=== PATIENT | female | born 2005 | race Caucasian/White ===

== ENCOUNTER 2025-06-16 14:00 | Emergency (ER) | payer OTHER, SELFPAY ==
--- NOTE | ~2025-06-16 | XR_ITS ---
EXAMINATION: XR knee LT min 4V, 06/16/2025 14:45 OUTPATIENT CASE MANAGER HISTORY: Fall w/ Injury COMPARISON: No comparisons available. Findings: No acute fracture or malalignment. No significant degenerative changes. Soft tissues unremarkable. Impression: No acute fracture or malalignment. Reviewed, dictated and finalized at location P. ATIENT CASE MANAGER Impression: No acute fracture or malalignment.
[2025-06-16 14:05] VITALS: BP 154/96; PULSE 102; RESP 18; TEMP 36.4; O2SAT 100
--- OUTSIDE RECORDS SUMMARY | 2025-06-16 16:24 | XMS_ITS | Clinical Summary ---
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 Care Provider Unavailabl e Immunizations Immunization Administration Dates Next Due Flucelvax Trivalent Prefilled Syringe (18+MOS) 1 Pfizer Cominarty Covid-19 Prefilled Syringe (12+ yrs) 04/19/2025 Social History Tobacco Use Types Packs/Day Years Used Date Smoking Tobacco: Never Assessed Comments Unknown Sex and Gender Information Value Date Recorded Sex Assigned at Not on file Legal Sex Female 11:25 AM EDT Gender Identity Not on file Sexual Orientation Not on file Plan of Treatment Health Maintenance Due Date Last Done Comments Depression: Screening Annual ly using PHQ-2/9 in Adults 18 yrs or above (or HM Modifier)([facility]) 2021 Hepatitis C Virus Infection in Adolescents and Adults: Screening (or Modifier) ([facility]) 2021 SDOH Screening Reminder: Yaritza borges for all adults ([facility]) 2021 Tobacco Smoking Cessation: i n Adults excluding Women: Behavioral and Pharmacotherapy Interventions ([facility]) 2021 DTaP/Tdap/Td Vaccines ([facility]) (1 - Tdap) 2022 Cervical Cancer Screenin 1-65 yrs of age (or Modifier) 2024 Cervical Cancer Screening: P ap every 3 yrs pts age 21-65 2024 Cervical Cancer: Pap Screeni ng with Modifier timing ([facility]) 2024 Cervical Cancer: hrHPV alone or with cotesting Pap for Pts 30-65yrs screening every 5yrs ([facility]) 2024 Zoster/Shingles Vaccine Seri es Screening: Adults aged 18+ yrs (or HM Modifiers)([facility]) (1 of 2) 2053 COVID-19 Vaccine Screening: Initial Series and Booster Status ([facility]) Completed 04/19/2025 Flu Vaccination: Yearly for ages 18mos through 64 years (or Modifier)([facility]) Completed 04/19/2025 Pneumococcal Vaccination Scr eening: Pts 0-19 & 19-49 yrs of age ([facility]) Aged Out No longer eligible b ased on patient's age to complete this topic Medical Devices Not on file Insurance [address] [employer] Care Teams Lockmaker Relationship Specialty Start Date End Date No, Pcp, 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
--- OUTSIDE RECORDS SUMMARY | 2025-06-16 16:24 | XMS_ITS | Clinical Summary ---
Author Organization [facility] Address [address] [place] [id number] Care Team Providers Care Miter Sawyer Name Role Phone Unavailable Primary Care Provider Unavailabl e Social History Tobacco Use Types Packs/Day Years Used Date Smoking Tobacco: Never Assessed Comments Unknown Sex and Gender Information Value Date Recorded Sex Assigned at Not on file Legal Sex Female 7:29 PM CDT Gender Identity Not on file Sexual Orientation Not on file Plan of Treatment Health Maintenance Due Date Last Done Comments Cervical Cancer Screening Pa p Smear (Age 21 to 29) Every 3 Years 2003 Cervical Cancer Screening 2003 Annual Physical 2006 HPV Vaccines (1 - 3-dose series) 2018 Meningococcal B Vaccine (1 o f 2 - Standard) 2019 Hepatitis C 2021 DTaP, Tdap and Td Vaccines ( 1 - Tdap) 2022 Hepatitis B Vaccines (1 of 3 - 19+ 3-dose series) 2022 COVID-19 Vaccine (1 - 2024-2 6 season) 2025 Influenza Adult (#1) 2025 Hepatitis A Vaccines Aged Out No long er eligible based on patient's age to complete this topic Meningococcal Vaccine Aged Out No iesha nina eligible based on patient's age to complete this topic Pneumococcal Vaccine: Pediat rics (0 to 5 Years) and At-Risk Patients (6 to 49 Years) Aged Out No longer eligible b ased on patient's age to complete this topic RSV Immunizations Under 20 Months Aged Out No longer eligible based on patient's age to complete this topic
--- NOTE | 2025-06-16 16:41 | ED.GENADULT ---
HPI - General Adult General Chief complaint: Extremity Injury, Lower Stated complaint: L knee pain Time Seen by Provider: 06/16/25 16:12 History of Present Illness HPI narrative: 20-year-old female presented emergency department for evaluation for persistent left knee pain. Patient reports about 2 weeks ago she injured her knee and had outpatient imaging showing no acute abnormalities and she was told she has any strain. Patient describes left anterior inferior patellar tenderness to palpation. Patient states she has not been using crutches or knee brace or a knee immobilizer. Patient has not been taking any and anti-inflammatories. Patient presented the emergency department for further evaluation and a 2nd opinion. Related Data Allergies Allergy/AdvReac Type Severity Reaction Status Date / Time Sulfa (Sulfonamide Allergy Anaphylaxis Verified 06/16/25 14:03 Antibiotics) Review of Systems Review of Systems: All systems reviewed & are unremarkable except as noted in HPI and below Exam Narrative: APPEARANCE: Well appearing, no pain, no distress, well-nourished. HEAD: normocephalic, atraumatic. EYES: PERRLA/EOMI, conjunctivae clear. NOSE: Normal no drainage EARS:TMS clear with good light reflex. THROAT: Pharynx clear, no exudate. NECK: Supple. No adenopathy, no masses. RESPIRATORY: Airway patent, respirations nonlabored. Clear to auscultation bilaterally, no rales, rhonchi, wheezing. CARDIOVASCULAR: Regular rate and rhythm without murmurs rubs or gallops. ABDOMINAL: Soft, nontender, nondistended, normal bowel sounds MUSCULOSKELETAL: no knee deformity, mild lower patellar tenderness, no ecchymosis, no effusion NEURO: Alert. Cranial nerves II through XII intact. Good gait. Good coordination SKIN: Warm, dry. Normal Color Course Vital Signs Vital signs: Vital Signs Temperature 97.6 F 06/16/25 14:05 Pulse Rate 102 H 06/16/25 14:05 Respiratory Rate 18 06/16/25 14:05 Blood Pressure 154/96 H 06/16/25 14:05 Pulse Oximetry 100 06/16/25 14:05 Oxygen Delivery Room Air 06/16/25 14:05 Temperature 97.6 F 06/16/25 14:05 Pulse Rate 90 06/16/25 17:15 Respiratory Rate 18 06/16/25 17:15 Blood Pressure 140/97 H 06/16/25 17:15 Pulse Oximetry 97 06/16/25 17:15 Oxygen Delivery Room Air 06/16/25 14:05 [facility] Narrative Medical decision making narrative: 20-year-old female presents emergency department for evaluation for persistent left knee pain. X-ray was negative for acute fracture dislocation. Patient does have tenderness to her inferior patella. No deformity, no erythema, no cellulitis, no posterior calf tenderness to palpation. Patient is being provided Negro wrap for increased support crutches for limited weight-bearing. Patient is also being provided anti-inflammatories. Patient was encouraged to have close follow-up with her primary care physician. Patient may benefit from outpatient imaging such as an MRI to further evaluate the pain if it persists. All questions and concerns were addressed. Patient was comfortable with plan for discharge and close follow-up. Differential Diagnosis Differential Diagnosis: knee fracture, knee contusion, knee strain, patellar injury Lab Data [facility] Lab Attestation statement: I personally reviewed the patient's lab results. Imaging Data Attestation: I personally reviewed and interpreted this imaging study as follows: My impression: x-ray: No acute fracture or dislocation Radiologist's impression: ITS Impressions Knee X-Ray 06/16/25 14:57 Impression: No acute fracture or malalignment. Discharge Plan Discharge Clinical Impression: Knee strain Patient Disposition: Home Condition: Stable Instructions: Antibiotic Form, Crutch Instructions (ED), Knee Pain (ED) Additional Instructions: Crutches for limited weight-bearing. Negro wrap for increased support. Anti-inflammatories as directed. Have close follow-up with your primary care physician. If you have persistent symptoms you may benefit from an outpatient MRI to further evaluate the soft tissues of the knee. Patient Language: Portuguese Prescriptions: New naproxen [Naprosyn] 500 mg tablet 500 mg PO BID 7 Days Qty: 14 0RF Follow-up/Referrals: John,Jayna [Other]
[2025-06-16 17:15] VITALS: BP 140/97; PULSE 90; RESP 18; O2SAT 97
== END 2025-06-16 17:16 | disposition home or self-care (01) ==
PROVIDERS: Emergency Provider Emergency Medicine
DX: S86.912A Strain of unspecified muscle(s) and tendon(s) at lower leg level, left leg, initial encounter (principal); X58.XXXA Exposure to other specified factors, initial encounter
CPT/HCPCS: 73564; 99283